=== PATIENT | female | born 1990 | race African-American/Black ===

== ENCOUNTER 2016-03-29 23:51 | Emergency (ER) | payer SELFPAY ==
[~2016-03-29] VITALS: Ht 157.5 cm; Wt 47.5 kg
[~2016-03-29 23:51] MED LIST: AMOX500T PO
[2016-03-29 23:59] VITALS: BP 129/73; PULSE 100; RESP 18; TEMP 100.4; O2SAT 100
[2016-03-30] MEDS ORDERED: KETOROLAC TROMETHAMINE 60 MG/2 ML (IM) VIAL IM ONE (01:00)
[2016-03-30] MEDS ORDERED: DEXAMETHASONE SOD PHOS 4 MG/ML VIAL IM ONE (01:00)
--- NOTE | 2016-03-30 01:02 | PD ---
HPI Chief Complaint: ENT Complaint Time Seen by Provider: 00:54 Travel History International Travel<30 days: No Contact w/Intl Traveler<30days: No Traveled to known affect area: No History of Present Illness HPI This is a 25-year-old female who presents for evaluation of a sore throat. Symptoms started 3 days ago. It hurts to swallow. She has had myalgias and low -grade fevers as well. Sometimes the pain radiates to the years. Denies nasal congestion, cough, rash, recent travel, abdominal pain, nausea, vomiting, dysuria. Denies any chance of . No sick contacts with a sore throat. No other complaints at this time. PFSH Past Medical History Diminished Hearing: No Immunizations Current: Yes ?: Not LMP: 03-25-16 : 1 Para: 0 Miscarriage: 0 : 0 Social History Alcohol Use: No Tobacco Use: No Substance Use: No Allergies-Medications (Allergen,Severity, Reaction): Coded Allergies: No Known Allergies (Unverified , 03/30/16) Reported Meds & Prescriptions Reported Meds & Active Scripts Active No Active Prescriptions or Reported Medications Review of Systems Except as stated in HPI: all other systems reviewed are Neg Physical Exam Narrative GENERAL: Well-developed well-nourished female in no acute distress. Voice is not hoarse or muffled, no stridor or drooling. SKIN: Warm and dry. HEAD: Atraumatic. Normocephalic. EYES: Pupils equal and round. No scleral icterus. No injection or drainage. ENT: No nasal bleeding or discharge. Mucous membranes pink and moist. Mild trismus. The oropharynx is erythematous with exudate bilaterally. Uvula midline with no mass effect. Tympanic membranes clear. NECK: Trachea midline. No JVD. Mild tender anterior cervical lymphadenopathy is present. Neck supple full range of motion. CARDIOVASCULAR: Regular rate and rhythm. No murmur appreciated. RESPIRATORY: No accessory muscle use. Clear to auscultation. Breath sounds equal bilaterally. Data Data Last Documented VS Vital Signs Date Time Temp Pulse Resp B/P Pulse Ox O2 Delivery O2 Flow Rate FiO2 03/29/16 23:59 100.4 100 18 129/73 100 Orders Monoscreen (03/30/16 00:59) Influenzae A/B Antigen (03/30/16 00:59) Group A Rapid Strep Screen (03/30/16 00:59) Ketorolac Inj (Toradol Inj) (03/30/16 01:00) Dexamethasone Inj (Decadron Inj) (03/30/16 01:00) Oral Rehydration (03/30/16 00:59) Strep Culture (Group A) (03/30/16 01:05) Amoxicillin (Trimox) (03/30/16 02:00) Labs Laboratory Tests Test 03/30/16 01:05 Monoscreen NEG MDM Medical Decision Making Medical Screen Exam Complete: Yes Emergency Medical Condition: Yes Medical Record Reviewed: Yes Interpretation(s) Oliver screen negative Influenza antigen negative Rapid strep screen negative Differential Diagnosis Exudative pharyngitis, tonsillitis, peritonsillar abscess, infectious mononucleosis, herpangina, epiglottitis, retropharyngeal abscess, influenza Narrative Course 25-year-old female with sore throat and myalgias and low-grade fevers for 3 days. Examination reveals exudative pharyngitis. No evidence of retropharyngeal, peritonsillar abscess or epiglottitis. Oliver screen, rapid strep screen and influenza antigen test have all been sent. The patient will be given oral hydration, Toradol and Decadron injections. 0155: The patient's mono screen, influenza antigen test and rapid screen are all negative. The patient feels symptomatically improved. The plan at this point in time would be to treat the patient with amoxicillin for exudative pharyngitis. She understands that there is a high false negative rate in the mono screen early in the course of infectious mononucleosis and for this reason she is instructed to follow-up with her primary care physician if symptoms do not improve with the use of prednisone and amoxicillin at home. She is instructed to return here for worsening symptoms. She is stable for discharge. Diagnosis Primary Impression: Exudative pharyngitis Additional Instructions: Use the medication as prescribed. Stay well hydrated and well-nourished. Take Tylenol or ibuprofen for discomfort and fever. If symptoms persist follow-up with primary care physician in 5-7 days. Return for new or worsening symptoms. Med/Other Pt SpecificInfo: Prescription(s) given Scripts Prednisone 20 Mg Tab20 Mg PO BID 5 Days Ref 0 Prov:Mayte Ruvalcaba MD 03/30/16 Amoxicillin 875 Mg Yui070 Mg PO BID 10 Days Ref 0 Prov:Mayte Ruvalcaba MD 03/30/16 Disposition: 01 DISCHARGE HOME Condition: Stable Gareth Mckay Mar 30, 2016 01:02
[2016-03-30] MEDS ORDERED: AMOX875T PO (01:59)
[2016-03-30] MEDS ORDERED: PRED20 PO (01:59)
[2016-03-30] MEDS ORDERED: AMOXICILLIN 875 MG TAB PO ONE (02:00)
== END 2016-03-30 02:13 | disposition home or self-care (01) ==
LOC: NEPB 23:51
DX: J02.9 Acute pharyngitis, unspecified (principal); R59.9 Enlarged lymph nodes, unspecified
CPT/HCPCS: 86308; 87081; 87804; 87880; 96372; 99283; J1100; J1885